=== PATIENT | female | born 1960 | race Caucasian/White ===

== ENCOUNTER 2020-04-01 08:41 | Outpatient (CLI) | payer OTHER ==
--- NOTE | 2020-04-01 09:16 | BD ---
EXAM: Bone densitometry using DEXA HISTORY: 59 yo female. Screening for postmenopausal osteoporosis FINDINGS: L1--bone mineral density 0.808 g/sq cm; T score -1.7 ; Z score -0.4 L2--bone mineral density 0.828 g/sq cm; T score -1.8 ; Z score -0.5 L3--bone mineral density 0.885 g/sq cm; T score -1.8 ; Z score -0.4 L4--bone mineral density 0.825 g/sq cm; T score -2.1 ; Z score -0.7 Total L1-L4--bone mineral density 0.837 g/sq cm; T score -1.9 ; Z score -0.5 Left femoral neck--bone mineral density0.681; T score -1.5 ; Z score -0.2 Total proximal left femur--bone mineral density 0.890; T score -0.4 ; Z score 0.5 The 10 year fracture risk for a major osteoporotic fracture is 7.7% and for a hip fracture is 0.7%. IMPRESSION: Osteopenia
== END 2020-04-01 08:42 | disposition home or self-care (01) ==
LOC: BICMAMMO 08:41
PROVIDERS: ATTEND Internal Medicine Rheumatology
DX: Z13.820 Encounter for screening for osteoporosis (principal); M85.89 Other specified disorders of bone density and structure, multiple sites; Z78.0 Asymptomatic menopausal state
CPT/HCPCS: 77080